=== PATIENT | male | born 1955 | race Asian ===

== ENCOUNTER 2025-07-19 19:28 | Emergency (ER) | payer MEDICARE, MEDICAID ==
[~2025-07-19] VITALS: Ht 157.5 cm; Wt 68.0 kg
[2025-07-19 19:45] VITALS: BP 125/77; TEMP 98; O2SAT 97
== END 2025-07-19 20:17 | disposition left against medical advice (07) ==
LOC: ER 19:48
DX: R07.89 Other chest pain (principal); F17.200 Nicotine dependence, unspecified, uncomplicated; Z59.00 Homelessness unspecified